=== PATIENT | female | born 1995 | race Caucasian/White ===

== ENCOUNTER 2018-07-07 22:27 | Emergency (ER) | payer OTHER ==
[~2018-07-07] VITALS: Ht 160 cm; Wt 88.1 kg
[2018-07-07 22:30] VITALS: BP 131/86
[2018-07-07] MEDS ORDERED: OXYcodone/APAP 5/325MG TABLET ONE (22:56)
[2018-07-07] MEDS ORDERED: OXYcodone/APAP 5/325MG TABLET PO ONE (23:00)
== END 2018-07-08 00:04 | disposition home or self-care (01) ==
LOC: ED 23:43
DX: S52.202A Unspecified fracture of shaft of left ulna, initial encounter for closed fracture (principal); W01.0XXA Fall on same level from slipping, tripping and stumbling without subsequent striking against object, initial encounter; Y93.89 Activity, other specified; Y99.8 Other external cause status; Y92.410 Unspecified street and highway as the place of occurrence of the external cause
CPT/HCPCS: 29125; 99284